=== PATIENT | male | born 1975 | race Caucasian/White ===

== ENCOUNTER 2016-08-03 07:53 | Emergency (ER) | payer OTHER ==
[~2016-08-03 07:53] MED LIST: ASPIRIN CHEWABL81 MG PO; FIBER TABS625 MG PO; HCTZ25 MG PO; JANUMET 50-1,01 EACH PO; LIPITOR 10MG TA10 MG PO; PERCOCET 5/3251 TAB PO; PRILOSEC20 MG PO; PRINIVIL20 MG PO; REGLAN10 MG PO; VICTOZA 2-0.6 MG/0.1 SC; XARELTO10 MG PO
[2016-08-03 08:22] LABS: BILIRUBIN NEGATIVE (NEGATIVE); BLOOD NEGATIVE Ery/uL (NEGATIVE); CLARITY CLEAR (CLEAR); COLOR YELLOW (YELLOW); GLUCOSE (U) 3+ mg/dL (NORMAL); KETONE (U) NEGATIVE (NEGATIVE); LEUKOCYTES NEGATIVE Leu/uL (NEGATIVE); NITRITE NEGATIVE (NEGATIVE); PROTEIN NEGATIVE (NEGATIVE); SPECIFIC GRAVITY <=1.005 (1.001-1.030); UROBILINOGEN 0.2 mg/dL (0.2-1.0)
[2016-08-03 08:47] LABS: BASOPHIL 0.4 % (0-2); EOSINOPHIL 2.4 % (0-5); HCT 42.3 % (42.0-52.0); HGB 15.1 g/dl (13.2-18.0); LYMPHOCYTE 37.9 % (15-48); MCH 30.1 pg (25.0-31.0); MCHC 35.7 g/dL (32.0-36.0); MCV 84.3 fL (78.0-100.0); MONOCYTE 8.2 % (0-12); MPV 10.1 fL (6.0-9.5); NEUTROPHIL 51.1 % (41-80); PLT 271 K/uL (150-400); RBC 5.02 M/uL (4.70-6.00); RDW 12.8 % (11.5-14.0); WBC 5.5 K/uL (4.0-10.5)
[2016-08-03 09:14] LABS: ALBUMIN 4.2 g/dL (3.5-5.0); BILIRUBIN - TOTAL 0.2 mg/dL (0.1-1.0); CREATININE 0.6 mg/dL (0.7-1.2); GLOBULIN (CALCULATION) 2.6 g/dL (2.2-4.2); POTASSIUM 4.2 mmol/L (3.5-5.1); TOTAL PROTEIN 6.8 g/dL (6.4-8.3)
[2016-08-03 11:34] LABS: BILIRUBIN - TOTAL 0.2 mg/dL (0.1-1.0); CREATININE 0.6 mg/dL (0.7-1.2); GLOBULIN (CALCULATION) 2.9 g/dL (2.2-4.2); POTASSIUM 3.9 mmol/L (3.5-5.1); TOTAL PROTEIN 6.9 g/dL (6.4-8.3)
[2016-10-04] MEDS ORDERED: FENOFIBRATE160 MG PO (12:10)
[2016-10-04] MEDS ORDERED: CRESTOR20 MG PO (12:10)
[2016-10-04] MEDS ORDERED: VALSARTAN80 MG PO (12:10)
[2016-10-04] MEDS ORDERED: AMARYL4 MG PO (12:11)
[2016-10-04] MEDS ORDERED: SYNTHROID75 MCG PO (12:11)
[2016-10-04] MEDS ORDERED: LOVAZA1 GM PO (12:11)
== END 2016-08-03 13:22 | disposition home or self-care (01) ==
LOC: FER 07:53
PROVIDERS: Emergency Medicine
DX: R10.9 Unspecified abdominal pain (principal); I10 Essential (primary) hypertension; E11.65 Type 2 diabetes mellitus with hyperglycemia; E78.5 Hyperlipidemia, unspecified; F17.210 Nicotine dependence, cigarettes, uncomplicated; Z84.1 Family history of disorders of kidney and ureter; Z79.84 Long term (current) use of oral hypoglycemic drugs; Z79.899 Other long term (current) drug therapy; Z98.890 Other specified postprocedural states
CPT/HCPCS: 36415; 80053; 81003; 85025; J2270

== ENCOUNTER 2020-06-10 21:42 | Emergency (ER) | payer OTHER ==
[~2020-06-10 21:42] MED LIST changes: +ACIDOPHILUS1 EAC4 PO; +ADMELOG100 UNIT/1 SC; +AMARYL2 MG PO; +AMARYL4 MG PO; +ASPIRIN EC81 MG PO; +BACTRIM DS TAB1 EACH PO; +BASAGLAR K100 UNIT/1 SC; +BENICAR *OUT OF20 MG PO; +BENTYL10 MG PO; +CLOPIDOGREL75 MG PO; +COQ1050 MG PO; +COZAAR50 MG PO; +CRESTOR20 MG PO; +FENOFIBRATE160 MG PO; +FLOMAX0.4 MG PO; +HCTZ12.5 MG PO; +ISMO20 MG PO; +LINZESS145 MCG PO; +LIPITOR40 MG PO; +LOPRESSOR50 MG PO; +LORATADINE10 MG PO; +LOVASTATIN10 MG PO; +LOVAZA1 GM PO; +LYRICA75 MG PO; +MOTRIN600 MG PO; +MULTIVITAMINS1 EAC1 PO; +NEURONTIN300 MG PO; +NEXIUM20 MG PO; +NITROQUIK SL0.4 MG SL; +NORCO 5-325 TA1 EACH PO; +NORVASC10 MG PO; +NYSTATIN SUSP1 ML/ML SSP; +ONDANSETRON ODT4 MG SL; +PERCOCET 5-3251 EACH PO; +PHENERGAN12.5 M1 PO; +PHENERGAN25 M1 PO; +POTASSIUM20 MEQ/11 PO; +PREDNISONE 20MG20 MG PO; +PROAIR HFA8.5 GM INH; +SYNTHROID75 MCG PO; +TESSALON PERLE100 M1 PO; +TRULICITY0.75 MG/0. SC; +TRULICITY0.75 MG/0. SUBD; +TRULICITY1.5 MG/0.5 SC; +VALSARTAN80 MG PO; +VITAMIN D-40010 MCG PO; +VOLTAREN **OUT75 MG PO; +ZOFRAN4 MG PO; +ZOFRAN8 MG PO; +ZPAK PO
[2020-06-10 22:16] LABS: BASOPHIL 0.8 % (0-2); EOSINOPHIL 3.4 % (0-5); HCT 38.6 % (42.0-52.0); HGB 13.1 g/dl (13.2-18.0); LYMPHOCYTE 46.1 % (15-48); MCH 29.6 pg (25.0-31.0); MCHC 33.9 g/dL (32.0-36.0); MCV 87.3 fL (78.0-100.0); MONOCYTE 7.4 % (0-12); MPV 9.9 fL (6.0-9.5); NEUTROPHIL 41.9 % (41-80); NRBC 0; PLT 296 K/uL (150-400); RBC 4.42 M/uL (4.70-6.00); RDW 13.4 % (11.5-14.0); WBC 5.3 K/uL (4.0-10.5)
[2020-06-10 22:28] LABS: PROTHROMBIN TIME 12.5 SECONDS (11.4-13.6); PTT 24.1 SECONDS (22.2-34.7)
[2020-06-10 22:34] LABS: ALBUMIN 3.4 g/dL (3.4-5.0); BILIRUBIN - TOTAL 0.2 mg/dL (0.2-1.0); CREATININE 1.08 mg/dL (0.67-1.17); GLOBULIN (CALCULATION) 3.6 g/dL; POTASSIUM 4.2 mmol/L (3.5-5.1)
== END 2020-06-11 06:16 | disposition home or self-care (01) ==
LOC: FER 21:42
PROVIDERS: Emergency Medicine
DX: R07.9 Chest pain, unspecified (principal); R06.02 Shortness of breath; E11.9 Type 2 diabetes mellitus without complications; I25.10 Atherosclerotic heart disease of native coronary artery without angina pectoris; Z88.5 Allergy status to narcotic agent; Z87.19 Personal history of other diseases of the digestive system
CPT/HCPCS: 36415; 71045; 80053; 84484; 85025; 85610; 85730; 93005

== ENCOUNTER 2020-09-18 22:21 | Day surgery (SDCO) | payer OTHER ==
[~2020-09-18] VITALS: Ht 172.7 cm; Wt 93.0 kg
[2020-09-18 22:55] LABS: BASOPHIL 0.8 % (0-2); HCT 40.8 % (42.0-52.0); HGB 13.6 g/dl (13.2-18.0); LYMPHOCYTE 47.5 % (15-48); MCHC 33.3 g/dL (32.0-36.0); MONOCYTE 7.1 % (0-12); NEUTROPHIL 41.3 % (41-80); NRBC 0; PLT 273 K/uL (150-400); RBC 4.69 M/uL (4.70-6.00); RDW 13.2 % (11.5-14.0); WBC 6.4 K/uL (4.0-10.5)
[2020-09-18 23:05] LABS: ALBUMIN 3.8 g/dL (3.4-5.0); BILIRUBIN - TOTAL 0.3 mg/dL (0.2-1.0); BUN/CREAT RATIO (CALC) 19.8 RATIO; CREATININE 1.01 mg/dL (0.67-1.17); POTASSIUM 4.1 mmol/L (3.5-5.1); TOTAL PROTEIN 7.8 g/dL (6.4-8.2)
[2020-09-18 23:06] LABS: INR 1.03 (0.9-1.2); PROTHROMBIN TIME 12.9 SECONDS (11.8-13.4); PTT 23.1 SECONDS (24.4-34.7)
[2020-09-18 23:08] LABS: D-DIMER 0.5 ug/mLFEU (0.00-0.41)
[2020-09-19] MEDS ORDERED: EUTHYROX100 MCG PO (04:18)
[2020-09-19] MEDS ORDERED: TRANSDERM-SCOP1 EACH TD (04:35)
[2020-09-19] MEDS ORDERED: DIFLUCAN 100MG100 MG PO (04:38)
[2020-09-19 07:07] LABS: CKMB 1.5 ng/mL (0.0-3.6)
[2020-09-19 07:12] LABS: CHOLESTEROL 244 mg/dL (<200); HDL 24 mg/dL (40-60); LDL - DIRECT 117 mg/dL (<100); TRIGLYCERIDES 737 mg/dL (<150)
[2020-09-19] MEDS ORDERED: NITROGLYCERIN0.4 MG SL (10:48)
[2020-09-19] MEDS ORDERED: ISOSORBIDE MONO60 M1 PO (10:52)
--- NOTE | 2020-09-19 11:37 | NUR ---
6703 PT DISCHARGED INSTRUCTIONS REVIEWED WITH PT, PT VERBALIZED UNDERSTANDING. IV'DC AT THIS TIME, PT TOLERATED WELL. PT AMBULATING OUT WITH PCT AT THIS TIME TO PERSONAL CAR.
== END 2020-09-19 11:38 | disposition home or self-care (01) ==
LOC: FER 22:21 → FTCU 09-19 02:50
PROVIDERS: Emergency Medicine; Nurse Practitioner; ADMIT Internal Medicine
DX: R07.89 Other chest pain (principal); I25.10 Atherosclerotic heart disease of native coronary artery without angina pectoris; I10 Essential (primary) hypertension; E78.5 Hyperlipidemia, unspecified; E11.42 Type 2 diabetes mellitus with diabetic polyneuropathy; E11.43 Type 2 diabetes mellitus with diabetic autonomic (poly)neuropathy; K31.84 Gastroparesis; K21.9 Gastro-esophageal reflux disease without esophagitis; E03.9 Hypothyroidism, unspecified; G47.30 Sleep apnea, unspecified; Z87.891 Personal history of nicotine dependence; Z95.5 Presence of coronary angioplasty implant and graft; Z88.5 Allergy status to narcotic agent; Z79.4 Long term (current) use of insulin; Z79.899 Other long term (current) drug therapy; Z20.822 Contact with and (suspected) exposure to COVID-19
CPT/HCPCS: 36415; 71045; 80053; 80061; 82553; 84484; 85025; 85379; 85610; 85730; 93005; 96372; G0378; J1170; J1650; J2270; J2405; U0002

== ENCOUNTER 2020-11-03 16:34 | Emergency (ER) | payer OTHER ==
[~2020-11-03 16:34] MED LIST changes: +DIFLUCAN 100MG100 MG PO; +EUTHYROX100 MCG PO; +ISOSORBIDE MONO60 M1 PO; +NITROGLYCERIN0.4 MG SL; +TRANSDERM-SCOP1 EACH TD
[2020-11-03 17:51] LABS: BASOPHIL 0.7 % (0-2); EOSINOPHIL 4.4 % (0-5); HCT 40.1 % (42.0-52.0); HGB 13.3 g/dl (13.2-18.0); LYMPHOCYTE 43.8 % (15-48); MCH 29.4 pg (25.0-31.0); MCHC 33.2 g/dL (32.0-36.0); MCV 88.7 fL (78.0-100.0); MPV 10.2 fL (6.0-9.5); NEUTROPHIL 44.7 % (41-80); NRBC 0; PLT 296 K/uL (150-400); RBC 4.52 M/uL (4.70-6.00); RDW 13.2 % (11.5-14.0); WBC 5.6 K/uL (4.0-10.5)
[2020-11-03 17:52] LABS: BILIRUBIN NEGATIVE (NEGATIVE); BLOOD NEGATIVE Ery/uL (NEGATIVE); CLARITY CLEAR (CLEAR); COLOR YELLOW (YELLOW); GLUCOSE (U) 3+ mg/dL (NORMAL); LEUKOCYTES NEGATIVE Leu/uL (NEGATIVE); NITRITE NEGATIVE (NEGATIVE); PROTEIN NEGATIVE (NEGATIVE); SPECIFIC GRAVITY 1.015 (1.001-1.030); UROBILINOGEN 0.2 mg/dL (0.2-1.0); pH 5.5 (5.0-9.0)
[2020-11-03 18:23] LABS: ALBUMIN 3.4 g/dL (3.4-5.0); BILIRUBIN - TOTAL 0.2 mg/dL (0.2-1.0); BUN/CREAT RATIO (CALC) 11.7 RATIO; CREATININE 1.2 mg/dL (0.67-1.17); TOTAL PROTEIN 7.4 g/dL (6.4-8.2)
[2020-11-03] MEDS ORDERED: BENTYL10 MG PO (19:40)
== END 2020-11-03 19:49 | disposition home or self-care (01) ==
LOC: FER 16:34
PROVIDERS: Emergency Medicine
DX: R10.32 Left lower quadrant pain (principal); E11.43 Type 2 diabetes mellitus with diabetic autonomic (poly)neuropathy; K31.84 Gastroparesis; I10 Essential (primary) hypertension
CPT/HCPCS: 36415; 80053; 81003; 83690; 85025; J1885; J2405; J7030; Q9967

== ENCOUNTER 2021-01-04 20:59 | Emergency (ER) | payer OTHER ==
[2021-01-04] MEDS ORDERED: IBUPROFEN800 M1 PO (22:22)
[2021-01-04] MEDS ORDERED: TYLENOL500 MG PO (22:22)
[2021-01-05] MEDS ORDERED: ROBAXIN750 MG PO (18:24)
[2021-01-05] MEDS ORDERED: LIDOCAINE 5% P1 EACH TOP (18:29)
== END 2021-01-04 22:33 | disposition home or self-care (01) ==
LOC: FER 20:59
DX: S20.211A Contusion of right front wall of thorax, initial encounter (principal); E11.9 Type 2 diabetes mellitus without complications; Z88.5 Allergy status to narcotic agent; W19.XXXA Unspecified fall, initial encounter; Y92.009 Unspecified place in unspecified non-institutional (private) residence as the place of occurrence of the external cause
CPT/HCPCS: 71250

== ENCOUNTER 2021-01-05 18:06 | Emergency (ER) | payer OTHER ==
[~2021-01-05 18:06] MED LIST changes: +IBUPROFEN800 M1 PO; +TYLENOL500 MG PO
[2021-01-05] MEDS ORDERED: ROBAXIN750 MG PO (18:24)
[2021-01-05] MEDS ORDERED: LIDOCAINE 5% P1 EACH TOP (18:29)
== END 2021-01-05 18:40 | disposition home or self-care (01) ==
LOC: FER 18:06
DX: R07.89 Other chest pain (principal); I10 Essential (primary) hypertension
CPT/HCPCS: 99283

== ENCOUNTER 2021-03-21 23:12 | Emergency (ER) | payer OTHER ==
[~2021-03-21 23:12] MED LIST changes: +LIDOCAINE 5% P1 EACH TOP; +ROBAXIN750 MG PO
[2021-03-21 23:52] LABS: BASOPHIL 0.6 % (0-2); EOSINOPHIL 2.8 % (0-5); HCT 38.6 % (42.0-52.0); HGB 13.1 g/dl (13.2-18.0); LYMPHOCYTE 35.2 % (15-48); MCH 29.7 pg (25.0-31.0); MCHC 33.9 g/dL (32.0-36.0); MCV 87.5 fL (78.0-100.0); MONOCYTE 8.3 % (0-12); NEUTROPHIL 52.8 % (41-80); NRBC 0; PLT 291 K/uL (150-400); RBC 4.41 M/uL (4.70-6.00); RDW 12.9 % (11.5-14.0); WBC 7.1 K/uL (4.0-10.5)
[2021-03-22 00:17] LABS: BILIRUBIN NEGATIVE (NEGATIVE); BLOOD NEGATIVE Ery/uL (NEGATIVE); GLUCOSE (U) 3+ mg/dL (NORMAL); LEUKOCYTES NEGATIVE Leu/uL (NEGATIVE); NITRITE NEGATIVE (NEGATIVE); PROTEIN NEGATIVE (NEGATIVE); UROBILINOGEN 0.2 mg/dL (0.2-1.0)
[2021-03-22 00:21] LABS: CLARITY CLEAR (CLEAR); COLOR STRAW (YELLOW)
[2021-03-22 00:25] LABS: ALBUMIN 3.5 g/dL (3.4-5.0); BILIRUBIN - TOTAL 0.3 mg/dL (0.2-1.0); CREATININE 0.89 mg/dL (0.67-1.17); GLOBULIN (CALCULATION) 3.8 g/dL; TOTAL PROTEIN 7.3 g/dL (6.4-8.2)
[2021-03-22 00:26] LABS: POTASSIUM 4.3 mmol/L (3.5-5.1)
== END 2021-03-22 02:41 | disposition home or self-care (01) ==
LOC: FER 23:12
PROVIDERS: Emergency Medicine
DX: K57.10 Diverticulosis of small intestine without perforation or abscess without bleeding (principal); K76.0 Fatty (change of) liver, not elsewhere classified; N20.0 Calculus of kidney; E11.43 Type 2 diabetes mellitus with diabetic autonomic (poly)neuropathy; K31.84 Gastroparesis; I10 Essential (primary) hypertension; I25.10 Atherosclerotic heart disease of native coronary artery without angina pectoris; Z20.822 Contact with and (suspected) exposure to COVID-19; Z88.5 Allergy status to narcotic agent
CPT/HCPCS: 36415; 80053; 81003; 83690; 84484; 85025; 85379; 93005; J1885; Q9967; U0002

== ENCOUNTER 2021-06-06 21:24 | Emergency (ER) | payer OTHER ==
[2021-06-06] MEDS ORDERED: NORCO 5-325 TA1 EACH PO ×2 (22:22→22:23)
[2021-06-06] MEDS ORDERED: CYCLOBENZAPRINE10 MG PO (22:22)
== END 2021-06-06 22:10 | disposition home or self-care (01) ==
LOC: FER 21:24
DX: R07.81 Pleurodynia (principal); I10 Essential (primary) hypertension; E11.9 Type 2 diabetes mellitus without complications; Z88.5 Allergy status to narcotic agent; W01.0XXA Fall on same level from slipping, tripping and stumbling without subsequent striking against object, initial encounter
CPT/HCPCS: 71250

== ENCOUNTER 2021-06-30 23:22 | Emergency (ER) | payer OTHER ==
[~2021-06-30 23:22] MED LIST changes: +CYCLOBENZAPRINE10 MG PO
== END 2021-07-01 01:19 | disposition home or self-care (01) ==
LOC: FER 23:22
DX: R07.81 Pleurodynia (principal); I10 Essential (primary) hypertension; E11.9 Type 2 diabetes mellitus without complications; Z79.4 Long term (current) use of insulin; Z88.5 Allergy status to narcotic agent; Z79.899 Other long term (current) drug therapy; W19.XXXA Unspecified fall, initial encounter; Y93.89 Activity, other specified; Y92.810 Car as the place of occurrence of the external cause; Z28.310 Unvaccinated for COVID-19
CPT/HCPCS: 71045; 71100; J1885

== ENCOUNTER 2021-07-08 17:37 | Emergency (ER) | payer OTHER | END 2021-07-08 20:27 | disposition home or self-care (01) | LOC: FER 17:37 | DX: M94.0 Chondrocostal junction syndrome [Tietze] (principal); I10 Essential (primary) hypertension; Z88.5 Allergy status to narcotic agent; Z87.891 Personal history of nicotine dependence | CPT/HCPCS: 71046 ==

== ENCOUNTER 2021-07-27 15:49 | Emergency (ER) | payer OTHER ==
[2021-07-27 16:52] LABS: BASOPHIL 0.9 % (0-2); HCT 39.7 % (42.0-52.0); HGB 13.2 g/dl (13.2-18.0); LYMPHOCYTE 47.5 % (15-48); MCH 29.5 pg (25.0-31.0); MCHC 33.2 g/dL (32.0-36.0); MCV 88.8 fL (78.0-100.0); MONOCYTE 6.2 % (0-12); MPV 9.8 fL (6.0-9.5); NRBC 0; PLT 304 K/uL (150-400); RBC 4.47 M/uL (4.70-6.00); RDW 12.8 % (11.5-14.0); WBC 6.7 K/uL (4.0-10.5)
[2021-07-27 16:57] LABS: INR 0.97 (0.9-1.2); PROTHROMBIN TIME 12.3 SECONDS (11.8-13.4); PTT 25.8 SECONDS (24.4-34.7)
[2021-07-27 17:08] LABS: ALBUMIN 3.6 g/dL (3.4-5.0); BILIRUBIN - TOTAL 0.2 mg/dL (0.2-1.0); BUN/CREAT RATIO (CALC) 13.5 RATIO; CREATININE 0.89 mg/dL (0.67-1.17); GLOBULIN (CALCULATION) 3.7 g/dL; POTASSIUM 4.1 mmol/L (3.5-5.1); TOTAL PROTEIN 7.3 g/dL (6.4-8.2)
== END 2021-07-27 18:51 | disposition home or self-care (01) ==
LOC: FER 15:49
PROVIDERS: Emergency Medicine
DX: R07.89 Other chest pain (principal); I10 Essential (primary) hypertension; J44.9 Chronic obstructive pulmonary disease, unspecified
CPT/HCPCS: 36415; 80053; 84484; 85025; 85610; 85730; 93005